=== PATIENT | male | born 1955 | race Caucasian/White ===

== ENCOUNTER 2020-06-25 10:47 | Emergency (ER) | payer MEDICAID | END 2020-06-25 11:39 | disposition left against medical advice (07) | LOC: ER 10:48 | DX: Z00.00 Encounter for general adult medical examination without abnormal findings (principal); Z53.21 Procedure and treatment not carried out due to patient leaving prior to being seen by health care provider ==

== ENCOUNTER 2020-08-07 10:20 | Outpatient (CLI) | payer BC, MEDICAID | END 2020-08-07 23:59 | disposition home or self-care (01) | LOC: RAD 10:20 | PROVIDERS: ATTEND Psychiatry & Neurology Neurology | DX: S06.9X9S Unspecified intracranial injury with loss of consciousness of unspecified duration, sequela (principal); V89.2XXS Person injured in unspecified motor-vehicle accident, traffic, sequela; S06.34 Traumatic hemorrhage of right cerebrum; G40.909 Epilepsy, unspecified, not intractable, without status epilepticus; R41.3 Other amnesia | CPT/HCPCS: 95816 ==